=== PATIENT | female | born 1940 | race Caucasian/White ===

== ENCOUNTER 2019-04-22 13:30 | Inpatient (IN) ==
[2019-04-22] MEDS ORDERED: ASPIRIN 325 MG TABLET PO STA (14:08)
[2019-04-22 14:44] LABS: Basophils % 0.2 % (0.0-0.8); Eosinophils # 0.1 10*3/uL (0.0-0.87); Eosinophils % 0.6 % (0.00-10.9); Hematocrit 43.3 VOL% (35.7-47.0); Immature Granulocytes % 0.6 %; Immature Granulocytes Absolute 0.08 #; Lymphocytes # 3.4 10*3/uL (1.4-4.0); Lymphocytes % 26.3 % (21.3-54.2); Mean Corpuscular HGB Conc 32.3 GM/DL (32-36); Mean Corpuscular Volume 92.3 FL (87-102); Mean Platelet Volume 10.1 FL (9.6-12.0); Neutrophils % 63.3 % (38.7-73.9); Platelet Count 147 T/CUMM (130-400); Red Blood Count 4.69 MC/CUMM (3.8-5.5); Red Cell Distribution Width 14.3 % (9.3-17.3)
[2019-04-22 15:02] LABS: Osmolality,Calculated 283.7 MOS/KG (273-304)
[2019-04-22] MEDS ORDERED: ENOXAPARIN 30 MG/0.3 ML SYRINGE SUBCUT STA (15:43)
[2019-04-22] MEDS ORDERED: ENOXAPARIN 100 MG/ML SYRINGE SUBCUT ONE (15:48)
[2019-04-22] MEDS ORDERED: MAGNESIUM SULF RIDER 2 GM in PREMIX 1 EACH IV PRN (17:12)
[2019-04-22] MEDS ORDERED: ACETAMINOPHEN 325 MG TABLET PO PRN (17:12)
[2019-04-22] MEDS ORDERED: POTASSIUM CHLORIDE 20 MEQ TABLET PO PRN (17:12)
[2019-04-22] MEDS ORDERED: DOCUSATE SODIUM 100 MG CAPSULE PO PRN (17:12)
[2019-04-22] MEDS ORDERED: guaiFENesin/DM ER 600-30 MG TABLET PO PRN (17:12)
[2019-04-22] MEDS ORDERED: diphenhydrAMINE CAP 25 MG CAPSULE PO PRN (17:12)
[2019-04-22] MEDS ORDERED: ONDANSETRON 4 MG/2 ML VIAL IV PRN (17:12)
[2019-04-22] MEDS ORDERED: PROMETHAZINE 25 MG TABLET PO PRN (17:12)
[2019-04-22] MEDS ORDERED: MAGNESIUM SULF RIDER 4 GM in PREMIX 1 EACH IV PRN (17:12)
[2019-04-22] MEDS ORDERED: BISACODYL 5 MG TABLET PO PRN (17:12)
[2019-04-22] MEDS ORDERED: PANTOPRAZOLE 40 MG TABLET PO ONE (17:16)
[2019-04-22] MEDS ORDERED: NITROGLYCERIN SL 0.4 MG TABLET SL PRN (17:16)
[2019-04-22] MEDS ORDERED: hydrALAZINE 20 MG/1 ML VIAL IV PRN (17:24)
[2019-04-22 18:00] LABS: Troponin I 0.537 NG/ML (0.00-0.045)
[2019-04-22] MEDS: ENOXAPARIN 80 MG/0.8 ML SYRINGE SUBCUT SCH (18:46)
[2019-04-22 21:02] LABS: Troponin I 0.557 NG/ML (0.00-0.045)
[2019-04-22] MEDS: ROSUVASTATIN 10 MG TABLET PO SCH (21:04)
[2019-04-22] MEDS: GABAPENTIN 100 MG CAPSULE PO SCH (21:04)
[2019-04-22] MEDS: LATANOPROST 0.005% OPH SOLN 2.5 ML BOTTLE BOTH EYES SCH (21:04)
[2019-04-22] MEDS: OXYBUTYNIN XL 10 MG TABLET PO SCH (21:06)
[2019-04-22] MEDS: CARVEDILOL 3.125 MG TABLET PO SCH (21:06)
[2019-04-22] MEDS: ACETAMINOPHEN 325 MG TABLET PO SCH (21:06)
[2019-04-22] MEDS ORDERED: SODIUM CHLORIDE 0.9% 1,000 ML IV SCH (22:30)
[2019-04-23 00:19] LABS: Troponin I 0.584 NG/ML (0.00-0.045)
[2019-04-23 02:54] LABS: Apearance,Urine CLEAR (Clear); Bacteria,Urine Many /HPF (Few); Bilirubin,Urine Negative (Negative); Blood, Urine Small mg/dL (Negative); Glucose,Urine (UA) Negative (Negative); Ketones,Urine Negative (Negative); Nitrite,Urine Negative (Negative); Protein,Urine Negative; RBC,Urine 5 /HPF (0-4); Squamous Epithelial Cell,Urine Occasional /HPF (0-10); Urine Color Yellow (Yellow); Urine Specific Gravity 1.011 (1.001-1.035); Urine Urobilinogen < 2.0 EU/DL (0.2-1.0); WBC,Urine 71 /HPF (0-6)
[2019-04-23 04:41] LABS: Basophils % 0.3 % (0.0-0.8); Eosinophils # 0.1 10*3/uL (0.0-0.87); Eosinophils % 0.8 % (0.00-10.9); Hematocrit 39.5 VOL% (35.7-47.0); Hemoglobin 12.6 GM/DL (12.0-16.0); Immature Granulocytes % 0.5 %; Immature Granulocytes Absolute 0.05 #; Lymphocytes # 2.4 10*3/uL (1.4-4.0); Mean Corpuscular HGB Conc 31.9 GM/DL (32-36); Mean Corpuscular Volume 92.9 FL (87-102); Mean Platelet Volume 10.3 FL (9.6-12.0); Monocytes % 11.5 % (1.7-12.7); Neutrophils % 62.9 % (38.7-73.9); Platelet Count 140 T/CUMM (130-400); Red Blood Count 4.25 MC/CUMM (3.8-5.5); White Blood Count 10.1 T/CUMM (4-12)
[2019-04-23] MEDS: MORPHINE 4 MG/1 ML VIAL IV PRN ×2 (04:42→08:39)
[2019-04-23] MEDS: ENOXAPARIN 80 MG/0.8 ML SYRINGE SUBCUT SCH (04:45)
[2019-04-23 06:08] LABS: Calcium 8.6 MG/DL (8.5-10.1); Osmolality,Calculated 288.4 MOS/KG (273-304); Risk Ratio 2.62; Thyroid Stimulating Hormone 1.8 uIU/ml (0.358-3.74); VLDL CHOLESTEROL 24.2 MG/DL
[2019-04-23] MEDS: LEVOTHYROXINE 75 MCG TABLET PO SCH (06:20)
[2019-04-23] MEDS: CARVEDILOL 3.125 MG TABLET PO SCH ×2 (08:43→20:56)
[2019-04-23] MEDS: ALLOPURINOL 300 MG TABLET PO SCH (08:44)
[2019-04-23] MEDS: PANTOPRAZOLE 40 MG TABLET PO SCH (08:44)
[2019-04-23] MEDS: GABAPENTIN 100 MG CAPSULE PO SCH ×2 (08:44→20:56)
[2019-04-23] MEDS: MAGNESIUM CHLORIDE 64 MG TABLET PO SCH (08:44)
[2019-04-23] MEDS: ACETAMINOPHEN 325 MG TABLET PO SCH ×2 (08:45→20:55)
[2019-04-23] MEDS ORDERED: ASPIRIN EC 81 MG TABLET PO SCH (09:00)
[2019-04-23] MEDS ORDERED: DIAZEPAM 5 MG TABLET PO ONE (13:53)
[2019-04-23] MEDS ORDERED: diphenhydrAMINE CAP 25 MG CAPSULE PO ONE (13:53)
[2019-04-23] MEDS ORDERED: SODIUM CHLORIDE 0.9% 1,000 ML IV SCH (14:00)
[2019-04-23] MEDS ORDERED: fentaNYL 100 MCG/2 ML VIAL ONE (14:01)
[2019-04-23] MEDS ORDERED: MIDAZOLAM 2 MG/2 ML VIAL ONE (14:01)
[2019-04-23] MEDS ORDERED: LIDOCAINE 1% 20 ML VIAL ONE (14:01)
[2019-04-23] MEDS ORDERED: TIROFIBAN 5,000 MCG/100 ML PREMIX IV ONE (15:18)
[2019-04-23] MEDS ORDERED: HEPARIN 5,000 UNIT/1 ML VIAL ONE (15:18)
[2019-04-23] MEDS ORDERED: TIROFIBAN 5,000 MCG/100 ML PREMIX IV SCH (15:24)
[2019-04-23] MEDS ORDERED: TICAGRELOR 90 MG TABLET ONE (16:10)
[2019-04-23] MEDS ORDERED: MAGNESIUM HYDROXIDE SUSP 30 ML UDCUP PO PRN (17:00)
[2019-04-23 19:00] LABS: Basophils % 0.2 % (0.0-0.8); Eosinophils # 0.1 10*3/uL (0.0-0.87); Eosinophils % 0.8 % (0.00-10.9); Hemoglobin 12.9 GM/DL (12.0-16.0); Immature Granulocytes % 0.6 %; Immature Granulocytes Absolute 0.07 #; Lymphocytes # 2.6 10*3/uL (1.4-4.0); Lymphocytes % 23.7 % (21.3-54.2); Mean Corpuscular HGB Conc 31.5 GM/DL (32-36); Mean Corpuscular Volume 93.2 FL (87-102); Mean Platelet Volume 9.7 FL (9.6-12.0); Monocytes % 8.9 % (1.7-12.7); Neutrophils % 65.8 % (38.7-73.9); Platelet Count 142 T/CUMM (130-400); Red Cell Distribution Width 13.9 % (9.3-17.3); White Blood Count 10.9 T/CUMM (4-12)
[2019-04-23 19:07] LABS: Troponin I 0.734 NG/ML (0.00-0.045)
[2019-04-23] MEDS: LATANOPROST 0.005% OPH SOLN 2.5 ML BOTTLE BOTH EYES SCH (20:54)
[2019-04-23] MEDS: OXYBUTYNIN XL 10 MG TABLET PO SCH (20:55)
[2019-04-23] MEDS: ROSUVASTATIN 10 MG TABLET PO SCH (20:56)
[2019-04-23] MEDS: ZALEPLON 5 MG CAPSULE PO PRN (20:56)
[2019-04-23] MEDS: TICAGRELOR 90 MG TABLET PO SCH (22:53)
[2019-04-23] MEDS: CILOSTAZOL 50 MG TABLET PO SCH (22:54)
[2019-04-24 01:38] LABS: Basophils % 0.2 % (0.0-0.8); Eosinophils # 0.1 10*3/uL (0.0-0.87); Eosinophils % 0.7 % (0.00-10.9); Hematocrit 37.7 VOL% (35.7-47.0); Hemoglobin 12.3 GM/DL (12.0-16.0); Immature Granulocytes % 0.4 %; Immature Granulocytes Absolute 0.04 #; Lymphocytes # 1.9 10*3/uL (1.4-4.0); Lymphocytes % 18.2 % (21.3-54.2); Mean Corpuscular HGB Conc 32.6 GM/DL (32-36); Mean Corpuscular Volume 93.3 FL (87-102); Mean Platelet Volume 9.6 FL (9.6-12.0); Monocytes % 9.5 % (1.7-12.7); Platelet Count 137 T/CUMM (130-400); Red Blood Count 4.04 MC/CUMM (3.8-5.5); White Blood Count 10.5 T/CUMM (4-12)
[2019-04-24 02:13] LABS: Troponin I 0.619 NG/ML (0.00-0.045)
[2019-04-24 03:25] LABS: Calcium 8.7 MG/DL (8.5-10.1); Osmolality,Calculated 284.4 MOS/KG (273-304)
[2019-04-24] MEDS ORDERED: ASPIRIN CHEW 81 MG TABLET PO SCH (09:00)
[2019-04-24] MEDS: ACETAMINOPHEN 325 MG TABLET PO SCH ×2 (09:44→21:02)
[2019-04-24] MEDS: PANTOPRAZOLE 40 MG TABLET PO SCH (09:44)
[2019-04-24] MEDS: ALLOPURINOL 300 MG TABLET PO SCH (09:44)
[2019-04-24] MEDS: CILOSTAZOL 50 MG TABLET PO SCH (09:44)
[2019-04-24] MEDS: MAGNESIUM CHLORIDE 64 MG TABLET PO SCH (09:45)
[2019-04-24] MEDS: TICAGRELOR 90 MG TABLET PO SCH ×2 (09:45→21:02)
[2019-04-24] MEDS: LEVOTHYROXINE 75 MCG TABLET PO SCH (09:45)
[2019-04-24] MEDS ORDERED: HYDROmorphone 2 MG/1 ML VIAL IV ONE (09:49)
[2019-04-24] MEDS: GABAPENTIN 100 MG CAPSULE PO SCH ×3 (09:49→14:09)
[2019-04-24] MEDS: CARVEDILOL 3.125 MG TABLET PO SCH ×2 (09:54→21:03)
[2019-04-24] MEDS: NITROFURANTOIN MACRO/MONO 100 MG CAPSULE PO SCH ×2 (09:54→21:02)
[2019-04-24 10:02] LABS: Troponin I 0.503 NG/ML (0.00-0.045)
[2019-04-24 12:41] LABS: Basophils % 0.2 % (0.0-0.8); Eosinophils # 0.1 10*3/uL (0.0-0.87); Eosinophils % 0.9 % (0.00-10.9); Hematocrit 38.2 VOL% (35.7-47.0); Hemoglobin 12.2 GM/DL (12.0-16.0); Immature Granulocytes % 0.4 %; Immature Granulocytes Absolute 0.05 #; Lymphocytes # 2.1 10*3/uL (1.4-4.0); Lymphocytes % 16.9 % (21.3-54.2); Mean Corpuscular HGB Conc 31.9 GM/DL (32-36); Mean Corpuscular Volume 93.4 FL (87-102); Mean Platelet Volume 9.7 FL (9.6-12.0); Monocytes % 7.8 % (1.7-12.7); Neutrophils % 73.8 % (38.7-73.9); Platelet Count 146 T/CUMM (130-400); Red Blood Count 4.09 MC/CUMM (3.8-5.5); White Blood Count 12.4 T/CUMM (4-12)
[2019-04-24] MEDS: ROSUVASTATIN 10 MG TABLET PO SCH (21:02)
[2019-04-24] MEDS: OXYBUTYNIN XL 10 MG TABLET PO SCH (21:03)
[2019-04-24] MEDS: LATANOPROST 0.005% OPH SOLN 2.5 ML BOTTLE BOTH EYES SCH (21:03)
[2019-04-25 04:37] LABS: Basophils % 0.3 % (0.0-0.8); Eosinophils # 0.1 10*3/uL (0.0-0.87); Eosinophils % 0.5 % (0.00-10.9); Hematocrit 37.4 VOL% (35.7-47.0); Hemoglobin 11.8 GM/DL (12.0-16.0); Immature Granulocytes % 0.5 %; Immature Granulocytes Absolute 0.06 #; Lymphocytes # 1.9 10*3/uL (1.4-4.0); Lymphocytes % 15.9 % (21.3-54.2); Mean Corpuscular HGB Conc 31.6 GM/DL (32-36); Mean Corpuscular Volume 94.2 FL (87-102); Monocytes % 8.7 % (1.7-12.7); Neutrophils % 74.1 % (38.7-73.9); Platelet Count 153 T/CUMM (130-400); Red Blood Count 3.97 MC/CUMM (3.8-5.5); White Blood Count 11.8 T/CUMM (4-12)
[2019-04-25 05:01] LABS: Osmolality,Calculated 288.3 MOS/KG (273-304)
[2019-04-25] MEDS: LEVOTHYROXINE 75 MCG TABLET PO SCH (06:35)
[2019-04-25] MEDS: NITROFURANTOIN MACRO/MONO 100 MG CAPSULE PO SCH ×2 (09:04→21:53)
[2019-04-25] MEDS: MAGNESIUM CHLORIDE 64 MG TABLET PO SCH (09:04)
[2019-04-25] MEDS: ALLOPURINOL 300 MG TABLET PO SCH (09:04)
[2019-04-25] MEDS: PANTOPRAZOLE 40 MG TABLET PO SCH (09:05)
[2019-04-25] MEDS: CARVEDILOL 3.125 MG TABLET PO SCH ×2 (09:05→21:54)
[2019-04-25] MEDS: TICAGRELOR 90 MG TABLET PO SCH ×2 (09:05→21:53)
[2019-04-25] MEDS: ACETAMINOPHEN 325 MG TABLET PO SCH ×2 (09:05→21:52)
[2019-04-25] MEDS ORDERED: ASPIRIN EC 81 MG TABLET PO SCH (11:30)
[2019-04-25] MEDS ORDERED: SODIUM CHLORIDE 0.9% 1,000 ML IV SCH (12:00)
[2019-04-25] MEDS: POLYETHYLENE GLYCOL POWDER 17 GM PACK PO SCH (14:46)
[2019-04-25] MEDS: DOCUSATE SODIUM 100 MG CAPSULE PO SCH ×2 (14:46→21:54)
[2019-04-25] MEDS: PSYLLIUM POWDER 3.7 GM/PACK PO SCH ×2 (14:46→22:01)
[2019-04-25] MEDS: AMPICILLIN 500 MG CAPSULE PO SCH ×2 (18:25→21:52)
[2019-04-25] MEDS: OXYBUTYNIN XL 10 MG TABLET PO SCH (21:52)
[2019-04-25] MEDS: ROSUVASTATIN 10 MG TABLET PO SCH (21:53)
[2019-04-25] MEDS: LATANOPROST 0.005% OPH SOLN 2.5 ML BOTTLE BOTH EYES SCH (22:01)
[2019-04-26 06:31] LABS: Basophils % 0.2 % (0.0-0.8); Eosinophils # 0.2 10*3/uL (0.0-0.87); Hematocrit 34.4 VOL% (35.7-47.0); Immature Granulocytes % 0.4 %; Immature Granulocytes Absolute 0.04 #; Lymphocytes # 1.7 10*3/uL (1.4-4.0); Lymphocytes % 18.2 % (21.3-54.2); Mean Corpuscular Volume 93.2 FL (87-102); Mean Platelet Volume 9.9 FL (9.6-12.0); Monocytes % 8.1 % (1.7-12.7); Neutrophils % 71.1 % (38.7-73.9); Platelet Count 160 T/CUMM (130-400); Red Blood Count 3.69 MC/CUMM (3.8-5.5); Red Cell Distribution Width 13.9 % (9.3-17.3); White Blood Count 9.1 T/CUMM (4-12)
[2019-04-26] MEDS: LEVOTHYROXINE 75 MCG TABLET PO SCH (06:39)
[2019-04-26 06:45] LABS: Albumin 2.6 G/DL (3.4-5.0); Calcium 8.6 MG/DL (8.5-10.1); Osmolality,Calculated 283.8 MOS/KG (273-304); Total Protein 6.4 G/DL (6.4-8.3)
[2019-04-26] MEDS: ALLOPURINOL 300 MG TABLET PO SCH (08:59)
[2019-04-26] MEDS: MAGNESIUM CHLORIDE 64 MG TABLET PO SCH (08:59)
[2019-04-26] MEDS: AMPICILLIN 500 MG CAPSULE PO SCH ×3 (08:59→21:19)
[2019-04-26] MEDS: TICAGRELOR 90 MG TABLET PO SCH ×2 (09:00→21:18)
[2019-04-26] MEDS: ACETAMINOPHEN 325 MG TABLET PO SCH ×2 (09:00→22:31)
[2019-04-26] MEDS: DOCUSATE SODIUM 100 MG CAPSULE PO SCH ×2 (09:00→21:18)
[2019-04-26] MEDS: PANTOPRAZOLE 40 MG TABLET PO SCH (09:00)
[2019-04-26] MEDS: CARVEDILOL 3.125 MG TABLET PO SCH ×2 (09:00→21:19)
[2019-04-26] MEDS: ASPIRIN CHEW 81 MG TABLET PO SCH (09:00)
[2019-04-26] MEDS: NITROFURANTOIN MACRO/MONO 100 MG CAPSULE PO SCH ×2 (09:02→21:22)
[2019-04-26] MEDS: POLYETHYLENE GLYCOL POWDER 17 GM PACK PO SCH (09:04)
[2019-04-26] MEDS: PSYLLIUM POWDER 3.7 GM/PACK PO SCH ×2 (09:04→21:22)
[2019-04-26] MEDS: SODIUM CHLORIDE 0.9% 1,000 ML IV SCH ×2 (14:55→23:01)
[2019-04-26] MEDS: NYSTATIN CREAM 15 GM TUBE TOP SCH ×2 (15:51→22:31)
[2019-04-26] MEDS: ROSUVASTATIN 10 MG TABLET PO SCH (21:19)
[2019-04-26] MEDS: CILOSTAZOL 50 MG TABLET PO SCH (21:19)
[2019-04-26] MEDS: OXYBUTYNIN XL 10 MG TABLET PO SCH (21:19)
[2019-04-26] MEDS: LATANOPROST 0.005% OPH SOLN 2.5 ML BOTTLE BOTH EYES SCH (22:32)
[2019-04-27] MEDS: ZALEPLON 5 MG CAPSULE PO PRN (01:38)
[2019-04-27 05:14] LABS: Calcium 8.7 MG/DL (8.5-10.1); Osmolality,Calculated 286.5 MOS/KG (273-304)
[2019-04-27] MEDS: LEVOTHYROXINE 75 MCG TABLET PO SCH (06:05)
[2019-04-27] MEDS: SODIUM CHLORIDE 0.9% 1,000 ML IV SCH (07:16)
[2019-04-27] MEDS: ACETAMINOPHEN 325 MG TABLET PO SCH (09:14)
[2019-04-27] MEDS: PANTOPRAZOLE 40 MG TABLET PO SCH (09:14)
[2019-04-27] MEDS: CILOSTAZOL 50 MG TABLET PO SCH (09:14)
[2019-04-27] MEDS: TICAGRELOR 90 MG TABLET PO SCH (09:14)
[2019-04-27] MEDS: DOCUSATE SODIUM 100 MG CAPSULE PO SCH (09:14)
[2019-04-27] MEDS: AMPICILLIN 500 MG CAPSULE PO SCH (09:14)
[2019-04-27] MEDS: CARVEDILOL 3.125 MG TABLET PO SCH (09:14)
[2019-04-27] MEDS: ASPIRIN CHEW 81 MG TABLET PO SCH (09:14)
[2019-04-27] MEDS: MAGNESIUM CHLORIDE 64 MG TABLET PO SCH (09:14)
[2019-04-27] MEDS: ALLOPURINOL 300 MG TABLET PO SCH (09:14)
[2019-04-27] MEDS: PSYLLIUM POWDER 3.7 GM/PACK PO SCH (11:26)
[2019-04-27] MEDS: NITROFURANTOIN MACRO/MONO 100 MG CAPSULE PO SCH (11:26)
[2019-04-27] MEDS: POLYETHYLENE GLYCOL POWDER 17 GM PACK PO SCH (11:27)
[2019-04-27] MEDS: NYSTATIN CREAM 15 GM TUBE TOP SCH (11:27)
[2019-04-27 12:04] VITALS: BP 153/73
== END 2019-04-27 13:46 | disposition home or self-care (01) | DRG 247 ==
LOC: N.EDINP 13:30 → N.ED 13:30 → N.TELES 16:50
PROVIDERS: ADMIT Internal Medicine Cardiovascular Disease; ATTEND Internal Medicine Cardiovascular Disease
PROC: CLCCHCL (ICD-10-PCS; 2019-04-23 14:45)